=== PATIENT | female | born 1995 | race Caucasian/White ===

== ENCOUNTER 2021-03-24 02:40 | Emergency (ER) | payer SELFPAY ==
[~2021-03-24] VITALS: Ht 160 cm; Wt 104.3 kg
[2021-03-24 02:43] VITALS: BP 154/93
--- NOTE | 2021-03-24 02:43 | NUR ---
TO BED AMBULATORY
--- NOTE | 2021-03-24 03:06 | NUR ---
COVERING PRIMARY RN FOR LUNCH RELIEF. SEE COMPLETE ASSESSMENT
--- NOTE | 2021-03-24 03:17 | NUR ---
RAD AT BEDSIDE FOR CXR
--- NOTE | 2021-03-24 04:24 | NUR ---
Note sudha in ED - 03/24/21 at 0424 by [id number] CLEAR YELLOW URINE NOTED, NO BM
--- NOTE | 2021-03-24 04:29 | NUR ---
UP TO BATHROOM FOR URINE SAMPLE.
--- NOTE | 2021-03-24 04:30 | NUR ---
C/O OF CHEST PAIN, PRESSURE-LIKE IN NATURE THAT IS SELF LIMITING, NON PROVOKED NON RADIATING FOR 5 DAYS NOW HAS ACHE IN LEFT SHOULDER THAT STARTED SINCE TIME IN DEPT. 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
[2021-03-24] MEDS ORDERED: KETOROLAC 30 MG/ML VIAL IM ONE (04:35)
--- NOTE | 2021-03-24 05:16 | NUR ---
PAIN TO CHEST AND SHOULDER IMPROVED PER PT NOW PAIN FREE AND NO PRESSURE PER PT
[2021-03-24 06:12] LABS: ANION GAP 10.7 (8-16); CREATININE 0.9 mg/dL (0.6-1.3); POTASSIUM 3.7 mmol/L (3.5-5.1)
--- NOTE | 2021-03-24 06:22 | NUR ---
PT C/O "A LITTLE NAUSEA AND PRESSURE IS COMING BACK A LITTLE" ERMD INFORMED. NO OTHER C/O AT THIS TIME.
--- NOTE | 2021-03-24 06:43 | NUR ---
Patient discharged with v/s stable. Written and verbal after care instructions given and explained. Patient verbalized understanding. Ambulatory with steady gait. All questions addressed prior to discharge. Advised to follow up with PMD.
[2021-03-24 06:44] VITALS: BP 140/92
== END 2021-03-24 06:40 | disposition home or self-care (01) ==
LOC: MED 02:40
DX: R07.9 Chest pain, unspecified (principal)
CPT/HCPCS: 36415; 71045; 80048; 84484; 93005; 96372; 99285; J1885; Q0092